=== PATIENT | male | born 1995 | race Caucasian/White ===

== ENCOUNTER 2016-07-13 17:36 | Emergency (ER) | payer MEDICAID ==
[~2016-07-13] VITALS: Ht 185.4 cm; Wt 59.0 kg
[2016-07-13 20:01] VITALS: BP 139/97
== END 2016-07-13 20:20 | disposition home or self-care (01) ==
LOC: ER 17:40
DX: S42.021A Displaced fracture of shaft of right clavicle, initial encounter for closed fracture (principal); W50.0XXA Accidental hit or strike by another person, initial encounter; Y93.89 Activity, other specified; Y99.8 Other external cause status; Y92.89 Other specified places as the place of occurrence of the external cause
CPT/HCPCS: 29105; 73030